=== PATIENT | female | born 1995 | race Asian ===

== ENCOUNTER 2022-05-13 13:14 | Day surgery (SDC) | payer OTHER ==
[~2022-05-13] VITALS: Ht 170.2 cm; Wt 87.2 kg
[~2022-05-13 13:14] MED LIST: BUPIVACAINE/EPI/PF 0.5% 30 ML VIAL ONE; RINGERS SOLUTION,LACTATED 1,000 ML IV ONE; SODIUM CL IRRIG SOLN BAG 0 ML IRRIG ONE
[2022-05-13] MEDS ORDERED: PROPOFOL 1% 20 ML VIAL IVP ONE (13:15)
[2022-05-13] MEDS ORDERED: LIDOCAINE/PF 2% 5 ML VIAL IM ONE (13:15)
[2022-05-13] MEDS ORDERED: DEXAMETHASONE SOD PHOS 4 MG/ML VIAL IVP ONE (13:15)
[2022-05-13] MEDS ORDERED: FentaNYL CITRATE PF 100 MCG/2 ML VIAL IVP ONE (13:15)
[2022-05-13] MEDS ORDERED: ONDANSETRON HCL 4 MG/2 ML VIAL IVP ONE (13:15)
[2022-05-13] MEDS ORDERED: 0.9% SODIUM CHLORIDE 10 ML VIAL IVP ONE (13:15)
[2022-05-13] MEDS ORDERED: ROCURONIUM BROMIDE 10 MG/ML 5 ML VIAL IVP ONE (13:15)
[2022-05-13] MEDS ORDERED: KETOROLAC TROMETHAMINE 60 MG/2 ML VIAL IM ONE (13:15)
[2022-05-13] MEDS ORDERED: MIDAZOLAM HCL 2 MG/2 ML VIAL IVP ONE (13:15)
[2022-05-13 13:39] LABS: COVID AG,FIA SOURCE NASAL SWAB
[2022-05-13] MEDS ORDERED: ACETAMINOPHEN 1000 MG/ISO-OSM 100 ML IV ONE (14:09)
[2022-05-13 14:16] LABS: GLUCOMETER DEV NAME(LOC) SDS.; GLUCOSE,POINT OF CARE 87 MG/DL (70-110)
[2022-05-13] MEDS ORDERED: PROP20TA18 PO (14:26)
[2022-05-13] MEDS ORDERED: NORG1TAB12 PO (14:26)
[2022-05-13] MEDS ORDERED: SUMA100T PO (14:27)
[2022-05-13] MEDS ORDERED: SUMA25TA9 PO (14:27)
[2022-05-13] MEDS ORDERED: SUGAMMADEX SODIUM 200 MG/2 ML VIAL IVP ONE (14:37)
[2022-05-13] MEDS ORDERED: MEPERIDINE-PF 25 MG/ML VIAL IVP PRN (15:15)
[2022-05-13] MEDS ORDERED: HYDROmorphone 2 MG/ML VIAL IVP PRN (15:15)
[2022-05-13] MEDS ORDERED: FentaNYL CITRATE PF 100 MCG/2 ML VIAL IVP PRN (15:15)
[2022-05-13] MEDS ORDERED: OXYGEN THERAPY IH SCH (20:00)
== END 2022-05-13 17:25 | disposition home or self-care (01) ==
LOC: SURGERY 13:14
PROVIDERS: ATTEND Orthopaedic Surgery
DX: S43.432A Superior glenoid labrum lesion of left shoulder, initial encounter (principal); M19.012 Primary osteoarthritis, left shoulder; M65.812 Other synovitis and tenosynovitis, left shoulder; M75.42 Impingement syndrome of left shoulder; I10 Essential (primary) hypertension; G89.18 Other acute postprocedural pain; E11.9 Type 2 diabetes mellitus without complications; X58.XXXA Exposure to other specified factors, initial encounter; Y93.89 Activity, other specified; Y92.89 Other specified places as the place of occurrence of the external cause; Y99.8 Other external cause status; Z79.899 Other long term (current) drug therapy
CPT/HCPCS: 29823; 29824; 29826; 64415; 82962; 84703; 87426; 76942; J3490 ×3; J2704; J0690; J1100; J3010; J1885; J2250; J2405; Q9967; J7120; J0131; C9803